=== PATIENT | female | born 1990 | race Caucasian/White ===

== ENCOUNTER 2018-05-15 09:12 | Outpatient (CLI) | payer MEDICARE, MEDICAID, SELFPAY ==
[2018-05-15 10:54] LABS: ALT 39 U/L (12-78); AST 18 U/L (15-37); Alkaline Phosphatase 116 U/L (46-116); BUN 18 mg/dL (7-18); Bilirubin, Total 0.5 mg/dL (0.2-1.0); CREATININE 0.96 mg/dL (0.55-1.02); Calcium 9.4 mg/dL (8.5-10.1); Chloride 105 mmol/L (98-107); Glucose 80 mg/dL (70-100); Potassium 4.7 mmol/L (3.5-5.1); Sodium 144 mmol/L (136-145); Total Protein 7.5 g/dL (6.4-8.2)
[2018-05-19 09:15] LABS: HBV DNA Detect/Quant, PCR 521 IU/mL (Undetected)
[2018-05-19 13:56] LABS: HIV-1 RNA Quantification Undetected copies/mL (UNDECT)
== END 2018-05-15 09:32 ==
PROVIDERS: PCP Nurse Practitioner Family; Visit Provider Nurse Practitioner Family
DX: B20 Human immunodeficiency virus [HIV] disease (principal); B18.1 Chronic viral hepatitis B without delta-agent
CPT/HCPCS: 36415; 80053; 87517; 87536

== ENCOUNTER 2018-05-26 09:00 | Outpatient (CLI) | payer MEDICARE, MEDICAID, SELFPAY | END 2018-05-26 09:20 | PROVIDERS: PCP Nurse Practitioner Family; Referring Provider Nurse Practitioner Family; Visit Provider Internal Medicine Infectious Disease | DX: B20 Human immunodeficiency virus [HIV] disease (principal); Z79.899 Other long term (current) drug therapy | CPT/HCPCS: 99215 ==

== ENCOUNTER 2018-12-12 07:46 | Outpatient (CLI) | payer MEDICARE, MEDICAID, SELFPAY ==
[2018-12-12 08:38] LABS: Abs Immature Grans 0.01 k/cumm (0.0-0.09); Absolute Basophil Count 0.02 k/cumm (0.0-0.2); Absolute Eosinophil Count 0.31 k/cumm (0.0-0.7); Absolute Lymphocyte Count 2.51 k/cumm (1.2-3.4); Absolute Monocyte Count 0.48 k/cumm (0.11-0.7); Absolute Neutrophil Count 4.22 k/cumm (1.2-6.7); Basophils % 0.3; Eosinophils % 4.1; HCT 44.6 % (36.0-46.0); HGB 15.1 g/dL (12.0-15.5); Immature Grans % 0.1; Lymphocytes % 33.2; Mean Corp. HGB Concentration 33.9 g/dL (32.0-36.0); Mean Corpuscular Hemoglobin 29.5 pg (27.0-33.0); Mean Corpuscular Volume 87.1 fL (80-95); Mean Platelet Volume 10.8 fL (8.0-11.0); Monocytes % 6.4; Neutrophils % 55.9; Platelet Count 245 x1000/uL (130-400); RBC 5.12 m/cumm (4.00-5.20); RBC Distribution Width 12.7 % (11.7-14.6); White Blood Cell Count 7.55 k/cumm (4.4-10.8)
[2018-12-12 09:32] LABS: ALT 38 U/L (12-78); AST 16 U/L (15-37); Albumin 3.9 g/dL (3.4-5.0); Alkaline Phosphatase 129 U/L (46-116); Anion Gap 6.8 mmol/L (3-11); BUN 17 mg/dL (7-18); Bilirubin, Total 0.5 mg/dL (0.2-1.0); CO2 32.2 mmol/L (21.0-32.0); Calcium 8.9 mg/dL (8.5-10.1); Chloride 104 mmol/L (98-107); Cholesterol 190 mg/dL (50-200); Estimated GFR 59.14 (mL/min/1.73m2); Glucose 83 mg/dL (70-100); HDL Cholesterol 37 mg/dL (40-60); LDL CHOLESTEROL 122 mg/dL (<100); Potassium 4.3 mmol/L (3.5-5.1); Sodium 143 mmol/L (136-145); Total Protein 7.5 g/dL (6.4-8.2); Triglyceride 134 mg/dL (30-150)
[2018-12-15 12:55] LABS: CD3 83 % (62-87); CD4 36 % (35-63); CD8 46 % (10-35)
[2018-12-15 20:19] LABS: HBV DNA Detect/Quant, PCR 1190 IU/mL (Undetected)
[2018-12-17 06:45] LABS: HIV-1 RNA Quantification Undetected copies/mL (UNDECT)
== END 2018-12-12 08:06 ==
PROVIDERS: PCP Nurse Practitioner Family; Visit Provider Internal Medicine Infectious Disease
DX: B20 Human immunodeficiency virus [HIV] disease (principal); Z79.899 Other long term (current) drug therapy; B18.1 Chronic viral hepatitis B without delta-agent; E78.5 Hyperlipidemia, unspecified
CPT/HCPCS: 36415; 80053; 80061; 83721; 87517; 87536; 85025; 86359; 86360; 87522

== ENCOUNTER 2018-12-22 09:00 | Outpatient (CLI) | payer MEDICARE, MEDICAID, SELFPAY | END 2018-12-22 09:20 | PROVIDERS: PCP Nurse Practitioner Family; Referring Provider Nurse Practitioner Family; Visit Provider Internal Medicine Infectious Disease | DX: B20 Human immunodeficiency virus [HIV] disease (principal); Z79.899 Other long term (current) drug therapy | CPT/HCPCS: 99215 ==

== ENCOUNTER 2019-06-29 09:00 | Outpatient (CLI) | payer MEDICARE, MEDICAID, SELFPAY | END 2019-06-29 09:20 | PROVIDERS: PCP Nurse Practitioner Family; Referring Provider Nurse Practitioner Family; Visit Provider Internal Medicine Infectious Disease | DX: B20 Human immunodeficiency virus [HIV] disease (principal); B18.1 Chronic viral hepatitis B without delta-agent; R19.7 Diarrhea, unspecified; Z79.899 Other long term (current) drug therapy | CPT/HCPCS: 99215 ==

== ENCOUNTER 2019-09-25 11:38 | Outpatient (REF) | payer MEDICARE, MEDICAID, SELFPAY ==
[2019-09-25 20:33] LABS: Anion Gap 9.1 mmol/L (3-11); BUN 19 mg/dL (7-18); CO2 29.9 mmol/L (21.0-32.0); CREATININE 0.92 mg/dL (0.55-1.02); Calcium 9.1 mg/dL (8.5-10.1); Chloride 106 mmol/L (98-107); Glucose 78 mg/dL (74-106); Potassium 4.4 mmol/L (3.5-5.1); Sodium 145 mmol/L (136-145)
== END 2019-09-25 11:58 ==
LOC: NCHCN 11:38
PROVIDERS: PCP Nurse Practitioner Family; Visit Provider Nurse Practitioner Family
DX: B18.1 Chronic viral hepatitis B without delta-agent (principal)
CPT/HCPCS: 80048

== ENCOUNTER 2020-04-26 10:36 | Outpatient (REF) | payer MEDICARE, MEDICAID, SELFPAY ==
[2020-04-26 21:39] LABS: HCT 45.6 % (36.0-46.0); MCH 29.1 pg (27.0-33.0); MCHC 32.9 % (32.0-36.0); MCV 88.4 fL (80-95); MPV 11.7 fL (8.0-11.0); Platelet Count 306 10^3/uL (130-400); RBC 5.16 10^6/uL (3.93-5.22); RDW-SD 38.6 fL; WBC 8.31 10^3/uL (4.4-10.8)
[2020-04-26 21:55] LABS: ALT 28 U/L (14-59); AST 16 U/L (15-37); Albumin 4.2 g/dL (3.4-5.0); Alkaline Phosphatase 109 U/L (46-116); Anion Gap 6.1 mmol/L (3-11); BUN 13 mg/dL (7-18); Bilirubin, Total 0.5 mg/dL (0.2-1.0); CO2 30.9 mmol/L (21.0-32.0); CREATININE 1.02 mg/dL (0.55-1.02); Calcium 9.3 mg/dL (8.5-10.1); Chloride 103 mmol/L (98-107); Glucose 85 mg/dL (74-106); Potassium 4.8 mmol/L (3.5-5.1); Sodium 140 mmol/L (136-145); Total Protein 7.5 g/dL (6.4-8.2)
[2020-04-28 14:50] LABS: HIV 1 RNA Qualitative Detected copies/mL (Undetected); HIV 1 RNA Quantitative 87 copies/mL (Undetected)
[2020-04-30 02:23] LABS: HBV DNA Detect/Quant, PCR Undetected IU/mL (Undetected)
== END 2020-04-26 10:56 ==
LOC: NCHCN 10:36
PROVIDERS: PCP Nurse Practitioner Family; Visit Provider Nurse Practitioner Family
DX: B20 Human immunodeficiency virus [HIV] disease (principal); B18.1 Chronic viral hepatitis B without delta-agent
CPT/HCPCS: 80053; 85027; 87517; 87536; 85007; 86359; 86360

== ENCOUNTER 2021-01-26 03:45 | Outpatient (CLI) | payer MEDICARE, MEDICAID, SELFPAY ==
[2021-01-26 11:55] LABS: Calculated LDL 118 mg/dL (<100); Cholesterol 178 mg/dL (<200); HDL Cholesterol 35 mg/dL (40-60); Triglyceride 127 mg/dL (<150)
[2021-01-30 09:59] LABS: 4/8 Ratio 0.82 (>=0.90); Absolute CD3 2182 Cells/uL (840-2,669); Absolute CD8 1192 Cells/uL (154-1,097); CD3 84 % (56-84); CD4 38 % (31-64); CD8 46 % (9-39)
== END 2021-01-26 03:46 | disposition home or self-care (01) ==
LOC: LBO 03:45
PROVIDERS: PCP Nurse Practitioner Family; Visit Provider Internal Medicine Infectious Disease
DX: B20 Human immunodeficiency virus [HIV] disease (principal); B18.1 Chronic viral hepatitis B without delta-agent; Z79.899 Other long term (current) drug therapy
CPT/HCPCS: 36415; 80061; 86359; 86360

== ENCOUNTER 2024-04-30 14:16 | Outpatient (REF) | payer MEDICARE, MEDICAID, SELFPAY ==
[2024-04-30 16:02] LABS: ALT 27 U/L (14-59); AST 19 U/L (15-37); Albumin 3.9 g/dL (3.4-5.0); Alkaline Phosphatase 102 U/L (46-116); BUN 18 mg/dL (7-18); Bilirubin, Total 0.53 mg/dL (0.2-1.0); CREATININE 1.1 mg/dL (0.55-1.02); Calcium 8.9 mg/dL (8.5-10.1); Chloride 105 mmol/L (98-107); Cholesterol 179 mg/dL (<200); Estimated GFR 68.04 (mL/min/1.73m2); Glucose 90 mg/dL (74-106); HDL Cholesterol 42 mg/dL (40-60); Potassium 3.9 mmol/L (3.5-5.1); Sodium 140 mmol/L (136-145); Total Protein 7.6 g/dL (6.4-8.2)
[2024-04-30 16:25] LABS: Calculated LDL 114 mg/dL (<100); TSH 2.28 uIU/Ml (0.36-3.74); Triglyceride 117 mg/dL (<150)
[2024-04-30 16:28] LABS: Hemoglobin A1C 4.9 % (<5.7)
== END 2024-04-30 14:17 | disposition home or self-care (01) ==
LOC: NCHCN 14:16
PROVIDERS: PCP Nurse Practitioner Family; Visit Provider Nurse Practitioner Family
DX: E78.5 Hyperlipidemia, unspecified (principal); Z13.1 Encounter for screening for diabetes mellitus
CPT/HCPCS: 80053; 80061; 83036; 84443